=== PATIENT | male | born 1990 | race Caucasian/White ===

== ENCOUNTER 2016-08-05 06:18 | Emergency (ER) | payer OTHER ==
[~2016-08-05] VITALS: Ht 185.4 cm; Wt 90.0 kg
[2016-08-05 06:24] VITALS: Ht 185.4 cm; Wt 90.0 kg
[2016-08-05] MEDS ORDERED: SOD CHLORIDE 0.9% 1,000 ML IV STA (06:32)
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
[2016-08-05 07:09] LABS: ADD SCAN DIFF NO
[2016-08-05 07:12] LABS: BASOPHIL # 0.1 10^3/ul (0.0-0.1); BASOPHILS % 1.7 % (0.0-2.0); EOSINOPHILS # 0.2 10^3/ul (0.0-0.5); HEMATOCRIT 41.3 % (42.0-52.0); HEMOGLOBIN 13.8 g/dl (14.0-18.0); LYMPHOCYTES # 2.9 10^3/ul (0.8-2.9); LYMPHOCYTES % 54.5 % (15.0-51.0); MEAN CORPUSCULAR HEMOGLOBIN 27.9 pg (29.0-33.0); MEAN CORPUSCULAR HGB CONC 33.4 g/dl (32.0-37.0); MEAN CORPUSCULAR VOLUME 83.4 fl (82.0-101.0); MONOCYTE # 0.5 10^3/ul (0.3-0.9); MONOCYTES % 10.1 % (0.0-11.0); NEUTROPHIL # 1.6 10^3/ul (1.6-7.5); NEUTROPHILS % 29.5 % (39.0-77.0); PLATELET COUNT 252 10^3/UL (140-415); RED BLOOD COUNT 4.95 10^6/ul (4.70-6.10); RED CELL DISTRIBUTION WIDTH 11.9 % (11.5-14.5); WHITE BLOOD COUNT 5.3 10^3/ul (4.8-10.8)
[2016-08-05 07:31] LABS: POTASSIUM 3.8 mmol/L (3.5-5.1)
[2016-08-05 07:33] LABS: CREATININE 0.99 mg/dl (0.61-1.24)
[2016-08-05 07:34] LABS: CALCIUM 8.9 mg/dl (8.4-10.2)
[2016-08-05 08:09] VITALS: BP 109/67; PULSE 54; RESP 18
== END 2016-08-05 08:14 | disposition home or self-care (01) ==
LOC: E/R 06:18
DX: R42 Dizziness and giddiness (principal); T67.3XXA Heat exhaustion, anhydrotic, initial encounter; R40.2142 Coma scale, eyes open, spontaneous, at arrival to emergency department; R40.2252 Coma scale, best verbal response, oriented, at arrival to emergency department; R40.2362 Coma scale, best motor response, obeys commands, at arrival to emergency department; X30.XXXA Exposure to excessive natural heat, initial encounter; Y92.9 Unspecified place or not applicable
CPT/HCPCS: 36415; 80048; 85025; 93005; 99284; J7030